=== PATIENT | female | born 1990 | race Caucasian/White ===

== ENCOUNTER 2017-12-26 22:39 | Emergency (ER) | payer MEDICAID ==
[~2017-12-26] VITALS: Ht 177.8 cm; Wt 77.7 kg
[~2017-12-26 22:39] MED LIST: IBUP-1986 PO; LORA-269 PO
[2017-12-26] MEDS ORDERED: AMOX500C2 PO (23:08)
[2017-12-26] MEDS ORDERED: ketorolac trometh inj. 60 MG/2 ML VIAL IM ONE (23:10)
[2017-12-26 23:40] VITALS: BP 143/99
== END 2017-12-26 23:42 | disposition home or self-care (01) ==
LOC: ER 22:40
DX: J02.9 Acute pharyngitis, unspecified (principal); K08.89 Other specified disorders of teeth and supporting structures; Z79.2 Long term (current) use of antibiotics
CPT/HCPCS: 96372; 99283; J1885

== ENCOUNTER 2018-01-01 20:28 | Emergency (ER) | payer MEDICAID ==
[~2018-01-01] VITALS: Ht 175.3 cm; Wt 77.9 kg
[~2018-01-01 20:28] MED LIST changes: +AMOX500C2 PO
[2018-01-01 20:41] VITALS: BP 119/78
[2018-01-01] MEDS ORDERED: dexamethasone sod phosphate 10mg/ml inj IM STA (21:29)
[2018-01-01] MEDS ORDERED: CefTRIAXone 250MG inj IM ONE (21:30)
[2018-01-01] MEDS ORDERED: AMOX500C2 PO (21:31)
[2018-01-01] MEDS ORDERED: LIDO20SO16 PO (21:31)
[2018-01-01] MEDS ORDERED: CefTRIAXone 250MG IM Kit w/LIDOcaine IM ONE (21:50)
== END 2018-01-01 22:11 | disposition home or self-care (01) ==
LOC: ER 20:29
DX: J02.0 Streptococcal pharyngitis (principal); Z79.899 Other long term (current) drug therapy
CPT/HCPCS: 96372; 99284; J0696; J1100

== ENCOUNTER 2018-10-19 15:52 | Emergency (ER) | payer MEDICAID ==
[~2018-10-19] VITALS: Ht 172.7 cm; Wt 70.5 kg
[~2018-10-19 15:52] MED LIST changes: -AMOX500C2 PO; +LIDO20SO16 PO
[2018-10-19 16:12] VITALS: BP 128/75
[2018-10-19] MEDS ORDERED: BUPIVAcaine/PF 7.5mg/ml (0.75%) 10ml vial IJ ONE (17:10)
[2018-10-19] MEDS ORDERED: AMOX500C2 PO (17:11)
== END 2018-10-19 18:20 | disposition home or self-care (01) ==
LOC: ER 15:53
DX: K04.7 Periapical abscess without sinus (principal)
CPT/HCPCS: 64400; 99284; J3490

== ENCOUNTER 2019-04-14 14:17 | Emergency (ER) | payer MEDICAID ==
[~2019-04-14] VITALS: Ht 172.7 cm; Wt 63.6 kg
[2019-04-14 16:08] VITALS: BP 117/79
== END 2019-04-14 16:09 | disposition home or self-care (01) ==
LOC: ER 14:18
DX: R55 Syncope and collapse (principal); Z79.899 Other long term (current) drug therapy
CPT/HCPCS: 82948; 93005; 99283

== ENCOUNTER 2019-07-16 13:16 | Emergency (ER) | payer MEDICAID ==
[~2019-07-16] VITALS: Ht 172.7 cm; Wt 63.6 kg
[2019-07-16 13:32] VITALS: BP 103/59
[2019-07-16] MEDS ORDERED: HYDR-3965 PO (14:40)
[2019-07-16] MEDS ORDERED: ACYC-202 PO (14:40)
[2019-07-16] MEDS ORDERED: PRED20TA PO (14:40)
== END 2019-07-16 15:07 | disposition home or self-care (01) ==
LOC: ER 13:16
DX: B02.9 Zoster without complications (principal); F41.9 Anxiety disorder, unspecified; Z79.899 Other long term (current) drug therapy
CPT/HCPCS: 99283

== ENCOUNTER 2019-09-16 11:26 | Emergency (ER) | payer MEDICAID ==
[~2019-09-16] VITALS: Ht 172.7 cm; Wt 68.2 kg
[2019-09-16 11:38] VITALS: BP 101/60
[2019-09-16] MEDS ORDERED: AMOX-580 PO (12:43)
[2019-09-16] MEDS ORDERED: IBUP-1985 PO (12:43)
== END 2019-09-16 13:17 | disposition home or self-care (01) ==
LOC: ER 11:28
DX: K04.7 Periapical abscess without sinus (principal); K02.9 Dental caries, unspecified; F41.9 Anxiety disorder, unspecified; Z79.899 Other long term (current) drug therapy
CPT/HCPCS: 99283